=== PATIENT | female | born 1940 | race African-American/Black ===

== ENCOUNTER 2017-06-07 08:02 | Emergency (ER) | payer OTHER ==
[~2017-06-07] VITALS: Ht 149.9 cm; Wt 75.8 kg
[2017-06-07] MEDS ORDERED: CARVEDILOL3.125 MG PO (08:10)
[2017-06-07] MEDS ORDERED: LIPITOR80 MG PO (08:10)
[2017-06-07] MEDS ORDERED: PRINIVIL20 MG PO (08:11)
[2017-06-07] MEDS ORDERED: LASIX 40 MG TAB40 M2 PO (08:11)
[2017-06-07] MEDS ORDERED: NOVOLIN 70100 UNIT/1 SUBQ ×2 (08:12)
[2017-06-07] MEDS ORDERED: OXYBUTYNIN 5 MG5 M2 PO (08:13)
[2017-06-07] MEDS ORDERED: KLOR-CON 10 ER10 MEQ PO (08:14)
[2017-06-07] MEDS ORDERED: PROTONIX40 M1 PO (08:15)
== END 2017-06-07 12:26 ==
LOC: ER 08:02
DX: S62.636A Displaced fracture of distal phalanx of right little finger, initial encounter for closed fracture (principal); W19.XXXA Unspecified fall, initial encounter; Y93.89 Activity, other specified; Y92.89 Other specified places as the place of occurrence of the external cause; Y99.8 Other external cause status

== ENCOUNTER 2018-10-10 00:52 | Emergency (ER) | payer OTHER ==
[~2018-10-10] VITALS: Ht 149.9 cm; Wt 90.7 kg
[~2018-10-10 00:52] MED LIST: CARVEDILOL3.125 MG PO; KLOR-CON 10 ER10 MEQ PO; LASIX 40 MG TAB40 M2 PO; LIPITOR80 MG PO; NOVOLIN 70100 UNIT/1 SUBQ; OXYBUTYNIN 5 MG5 M2 PO; PRINIVIL20 MG PO; PROTONIX40 M1 PO
[2018-10-10] MEDS ORDERED: ERGOCALCIF50000 UNIT PO (01:00)
[2018-10-10] MEDS ORDERED: PEPCID20 MG PO (01:01)
[2018-10-10] MEDS ORDERED: SEROQUEL 25 MG25 M1 PO (01:01)
[2018-10-10] MEDS ORDERED: SENNA8.6 MG PO (01:01)
[2018-10-10] MEDS ORDERED: HALOPERIDOL 2 MG2 MG PO (01:02)
[2018-10-10] MEDS ORDERED: TYLENOL325 MG PO (01:02)
[2018-10-10] MEDS ORDERED: ASPIRIN81 M2 PO (01:02)
[2018-10-10 03:05] VITALS: BP 135/76
== END 2018-10-10 03:38 | disposition home or self-care (01) ==
LOC: ER 00:52
DX: E11.649 Type 2 diabetes mellitus with hypoglycemia without coma (principal); Z88.0 Allergy status to penicillin; Z79.4 Long term (current) use of insulin

== ENCOUNTER 2019-03-01 08:49 | Inpatient (IN) | payer OTHER ==
[~2019-03-01] VITALS: Ht 149.9 cm; Wt 86.2 kg
[~2019-03-01 08:49] MED LIST changes: +ASPIRIN81 M2 PO; +ERGOCALCIF50000 UNIT PO; +HALOPERIDOL 2 MG2 MG PO; +PEPCID20 MG PO; +SENNA8.6 MG PO; +SEROQUEL 25 MG25 M1 PO; +TYLENOL325 MG PO
[2019-03-01 09:23] LABS: ABSOLUTE NEUTROPHILS 6.3 thou/uL (1.4-8.2); BASOPHILS 0.4 % (0.0-2.0); EOSINOPHILS 2.9 % (0.0-3.0); HEMATOCRIT 36.5 % (37.0-47.0); HEMOGLOBIN 11.9 gm/dL (12.0-15.0); LYMPHOCYTES 16.8 % (24.0-44.0); MCH 30.3 pg (26.0-34.0); MCHC 32.7 g/dL (28.0-37.0); MCV 92.8 fL (80.0-100.0); MONOCYTES 4.2 % (1.0-8.0); PLATELET COUNT 326 thou/uL (150-400); POLYS 75.7 % (36.0-66.0); RBC 3.93 mil/uL (4.20-5.00); RDW 14.6 % (10.5-14.5); WBC 8.3 thou/uL (4.0-11.0)
[2019-03-01 09:27] LABS: BE(vivo) 2.3 mmol/L (-2 to +3); PO2 61.5 mmHg (80.0-100.0); pH 7.384 (7.360-7.450)
[2019-03-01 09:33] LABS: ANION GAP 5 mmol/L (7-16); BUN 18 mg/dL (7-18); CHLORIDE 106 mmol/L (98-107); CO2 30 mmol/L (21-32); CREATININE 1.3 mg/dL (0.6-1.0); GLUCOSE 221 mg/dL (74-106); POTASSIUM 3.9 mmol/L (3.5-5.1); SODIUM 141 mmol/L (136-145)
[2019-03-01 09:38] LABS: DIRECT BILIRUBIN < 0.1 mg/dL (<0.1-0.2); SGOT 12 U/L (15-37); SGPT 19 U/L (30-65); TOTAL BILIRUBIN 0.3 mg/dL (<0.1-1.0); TOTAL PROTEIN 7.6 g/dL (6.4-8.2)
[2019-03-01 10:55] VITALS: BP 127/62
[2019-03-01 15:00] VITALS: BP 133/83
[2019-03-01] MEDS ORDERED: FOLGARD TABLET1 EAC1 PO (15:09)
[2019-03-01] MEDS ORDERED: HALOPERIDOL 2 MG2 M1 PO (15:15)
[2019-03-01] MEDS ORDERED: HALOPERIDOL 1 MG1 MG PO (15:17)
--- NOTE | 2019-03-01 15:22 | NUR ---
PATIENT IS A 78 YEAR OLD FEMALE WHO WAS ADMITTED FROM [facility] ER TO 4W ROOM 463. PATIENT IS ALERT AND ORIENTED X 3-4 ABLE TO VOICE NEED. PATIENT ORIGINALLY RESIDES AT [facility]. ACCORDING TO ER REPORT, PATIENT WAS FOUND STRUGGLING TO BREATH, WITH A ROOM AIR SAT OF 61% AND A BLOOD PRESSURE OF 235/160. LUNGS DIMINISHED IN ALL LOBE PER AUSCULTATION. BS+X4, ABD SOFT, NON-TENDER TO TOUCH. 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 PATIENT USES W/C FOR MOBILITY, [address] 2 LITERS N/C. SALINE LOCK TO RIGHT HAND. ADMIT VITALS FOLLOWS: BP134/74, HR 90, R 20, 02 SAT 95%. PATIENT IS CALM COOPERATIVE WITH ASSESSMENT QUESTIONS. LUNCH OFFERED, PATIENT CONSUMED 100%. PATIENT IS INCONTINENT OF BOWEL/BLADDER, REQUIRES TOTAL ADL CARE. PATIENT DENIES PAIN. NO SIGN OF ACUTE RESPIRATORY DISTRESS NOTED AT THIS TIME. PATIENT NOTED TALKING TO SELF AND TO UNSEEN OTHERS "MAYA". PATIENT IS IN BED RESTING, CALL LIGHT IN REACH, WILL CONTINUE TO MONITOR.
[2019-03-01 19:30] VITALS: BP 128/67
--- NOTE | 2019-03-02 05:02 | NUR ---
progress pt a/o x4 resting on and off this shift. denies pain at this time ivf's infusing as ordered. lungs diminished non productive cough noted rt tx's continue. repositioned frequently fall precautions in place continue poc.
[2019-03-02 08:00] VITALS: BP 133/51
--- NOTE | 2019-03-02 08:27 | EKG ---
[place] [address] [address] [facility] [place] [address] ELECTROCARDIOGRAM REPORT Name: JAE SIMEON Room #: 463-P ADM IN M.R.#: [id number] Admission: 03/01/19 Attend Phys: Liz Naylor MD Discharge: Date of : 38 Report #: [id number] THIS REPORT FOR: //name// [facility] ED Test Date: 2019-03-01 Test Time: 09:06:49 Pat Name: JAE SIMEON Department: Room: Gender: F [employer]: KM : 1940 Requested By: Haley Vizcaino Order Number: [id number] MD: Romeo Woodward Measurements Intervals [place] Rate: 98 P: 26 IN: 163 QRS: 48 QRSD: 96 T: 62 QT: 383 QTc: 490 Interpretive Statements Sinus rhythm Borderline prolonged QT interval No previous ECG available for comparison Electronically Signed On 03-02-2019 8:26:50 PALAEONTOLOGIST by Romeo Woodward [email or web address] <ELECTRONICALLY SIGNED> By: Romeo Woodward MD, [facility] 03/02/19 0826 [id number] 5 Romeo Woodward MD, FACC /EPI
--- NOTE | 2019-03-02 14:01 | NUR ---
DISCHARGE PLANNING. PATIENT RESIDES AT [facility]. PLAN IS FOR PATIENT TO RETURN TO ONCE MEDICALLY READY. CLINICAL INFORMATION FAXED TO [facility], [facility] ADMISSIONS. [facility] NOTIFIED. FOLLOWING.
--- NOTE | 2019-03-02 14:48 | NUR ---
Case opened to follow for dc planning. Automatic Seamer visited with the pt at [facility] and chart reviewed. The pt is a ltc resident at [facility] for approx one year. The pt reports she is normally up in a w/c at the facility. The pt has limited vision and if forgetful. She did confirm her dtrs Abril and Kayla are her emergency contacts. She is agreeable with updating [facility] admissions and is aware they are holding her bed per their admissions liason. Message left for her dtr Abril who has identified herself as the pt's guardian. [facility] is holding her bed. They report that they do not have any dpoa or guardianship documents on file. Case discussed with the care team. Will follow along and assist with pt's return to the senior care when medically ready.
[2019-03-02 20:07] VITALS: BP 118/58
--- NOTE | 2019-03-02 20:12 | NUR ---
Assumed patient care at 0715. Patient's vital signs have been stable throughout this shift; she denies pain. Blood sugars have been running high (250-370); she is asymptomatic. Daughter, Kyala, is Guardian. Kayla stated "the only kind of Insulin that will help control my Mother's blood sugar is Novolin 70/30!" This nurse called Pharmacy. Pharmacy does not carry this kind of Imsulin. Patient would have to get Insulin from her facility. Daughter was not happy about this. Patient has been in a pleasant mood all shift until her daughter came. At this time, patient began telling her daughter that staff is trying to "kill her" , and, "trying to make her kill herself." Patient has a diagnosis of Schizophrenia, per daughter. Report given to on-coming RN.
--- NOTE | 2019-03-03 04:21 | NUR ---
Pt. rested quietly at intervals during the night when checked on during frequent rounds. She refused some of her bedtime medications. Explained the medication to the pt. and she started getting irritated and voiced she did not want them (see emar). Female external catheter in place due to in- continency. No c/o pain. Bed alarm is on.
[2019-03-03 05:45] LABS: HEMATOCRIT 34.8 % (37.0-47.0); HEMOGLOBIN 11.2 gm/dL (12.0-15.0); MCHC 32.2 g/dL (28.0-37.0); MCV 93.1 fL (80.0-100.0); RBC 3.73 mil/uL (4.20-5.00); RDW 14.9 % (10.5-14.5); WBC 6.9 thou/uL (4.0-11.0)
[2019-03-03 08:55] VITALS: BP 141/73
--- NOTE | 2019-03-03 15:00 | NUR ---
ASSUMED CARE OF THE PT AT 0700. PT WANTS TO BE DISCHARGED, SPOKE WITH DOCTOR. PT FLUIDS ARE DISCONTINUED PER DOCTOR. PTS BS IS BEING CONTROLLED BY INSULIN, SEE EMAR. PT IS ON 2.0 L OF O2. PTS EXTERNAL CATHETER IS IN TACT AND WORKING. R HAND IV IS DRY AND INTACT. PT IS A FEEDER AND IS BLIND. FALL PRECAUTIONS ARE IN PLACE, BED IS IN THE LOWEST POSITION AND CALL LIGHT IS WITHIN REACH. WILL CONTINUE TO MONITOR THE PT.
--- NOTE | 2019-03-03 16:27 | NUR ---
CARE TEAM INDICATED THAT PT IS PROGRESSING TOWARD GOAL OF DISCHARGE BACK TO [facility]. LABS TO BE CHECKED TOMOROW AM. CM TO FOLLOW INDICATED WITH DC PLANNING.
[2019-03-03 16:50] VITALS: BP 120/62
[2019-03-03 19:37] VITALS: BP 126/80
--- NOTE | 2019-03-04 04:46 | NUR ---
Assessments completed. pt had a restful night. no c/o pain. on 2lnc and tolerating well. female ext. cath in place and patent. v/s wnl. no s/s of distress. will cont to monitor
[2019-03-04 08:34] VITALS: BP 126/80
[2019-03-04] MEDS ORDERED: LEVAQUIN 500 M500 M1 PO (11:34)
[2019-03-04] MEDS ORDERED: AZITHROMYCIN 2250 MG PO (11:34)
[2019-03-04] MEDS ORDERED: IPRAT-ALBUT 0.5-3 ML INH (11:35)
--- NOTE | 2019-03-04 16:06 | NUR ---
CARE TEAM INDICATED THAT PT IS MEDICALLY STABLE TO RETURN TO [facility] THIS DAY. CHART COPY ORDERED. ORDERS FAXED. CM ATTEMPTED TO NOTIFY BOTH DTRS BUT NEITHER ANSWERED. CM LEFT TWO MESSAGES WITH DTR VALERIY. TRANSPORT IS ARRANGED FOR [id number]. NO OTHER CM INTERVENTION INDICATED. CASE CLOSED.
--- NOTE | 2019-03-04 16:35 | NUR ---
PATIENT WILL BE DISCHARGED TO FACILITY THIS AFTERNOON. SHE IS PLEASED TO GO BACK HOME. DENIES PAIN. WAS TAKEN OFF OXYGEN AND HER SATS HAS BEEN ABOVE 92% IN ROOM AIR. WILL CONT WITH PLAN OF CARE.
== END 2019-03-04 17:49 | DRG 193 ==
LOC: ER 08:49 → 4W 12:12
PROVIDERS: Emergency Medicine; ADMIT Internal Medicine
DX: J18.9 Pneumonia, unspecified organism (principal); J96.01 Acute respiratory failure with hypoxia; F20.0 Paranoid schizophrenia; J44.0 Chronic obstructive pulmonary disease with (acute) lower respiratory infection; N18.3 Chronic kidney disease, stage 3 (moderate); E11.22 Type 2 diabetes mellitus with diabetic chronic kidney disease; K21.9 Gastro-esophageal reflux disease without esophagitis; N18.9 Chronic kidney disease, unspecified; E87.70 Fluid overload, unspecified; Z79.82 Long term (current) use of aspirin; Z79.899 Other long term (current) drug therapy; Z88.0 Allergy status to penicillin
CPT/HCPCS: 10040

== ENCOUNTER 2020-06-09 08:14 | Emergency (ER) | payer OTHER ==
[~2020-06-09] VITALS: Ht 162.6 cm; Wt 97.5 kg
[~2020-06-09 08:14] MED LIST changes: +AZITHROMYCIN 2250 MG PO; +FOLGARD TABLET1 EAC1 PO; +HALOPERIDOL 1 MG1 MG PO; +HALOPERIDOL 2 MG2 M1 PO; +IPRAT-ALBUT 0.5-3 ML INH; +LEVAQUIN 500 M500 M1 PO
[2020-06-09 09:09] LABS: ABSOLUTE NEUTROPHILS 4.5 thou/uL (1.4-8.2); BASOPHILS 0.8 % (0.0-2.0); EOSINOPHILS 3.4 % (0.0-3.0); HEMATOCRIT 34.2 % (37.0-47.0); HEMOGLOBIN 11.3 gm/dL (12.0-15.0); LYMPHOCYTES 15.7 % (24.0-44.0); MCH 30.5 pg (26.0-34.0); MCHC 32.9 g/dL (28.0-37.0); MCV 92.6 fL (80.0-100.0); MONOCYTES 7.6 % (1.0-8.0); PLATELET COUNT 287 thou/uL (150-400); POLYS 72.5 % (36.0-66.0); RBC 3.69 mil/uL (4.20-5.00); RDW 15.8 % (10.5-14.5); WBC 6.2 thou/uL (4.0-11.0)
[2020-06-09 09:10] LABS: URINE BILIRUBIN NEGATIVE (Negative); URINE BLOOD NEGATIVE (Negative); URINE CLARITY CLEAR; URINE COLOR YELLOW; URINE GLUCOSE-RANDOM* NEGATIVE (Negative); URINE KETONES NEGATIVE (Negative); URINE LEUKOCYTES-REFLEX NEGATIVE (Negative); URINE PROTEIN (DIPSTICK) NEGATIVE (Negative); URINE SPECIFIC GRAVITY 1.015 (1.005-1.035); URINE UROBILINOGEN 0.2 E.U./dl (0.2-1.0)
[2020-06-09 09:17] LABS: CALCIUM 9.2 mg/dL (8.5-10.1); CREATININE 1.3 mg/dL (0.6-1.0); POTASSIUM 4.4 mmol/L (3.5-5.1)
[2020-06-09 09:17] LABS: URINE NITRITE-REFLEX POSITIVE (Negative)
[2020-06-09 09:23] LABS: ALBUMIN 3.1 g/dL (3.4-5.0); TOTAL BILIRUBIN 0.4 mg/dL (0.2-1.0); TOTAL PROTEIN 7.4 g/dL (6.4-8.2)
[2020-06-09 09:45] LABS: SQUAMOUS 0-3 Few /LPF (0-3)
[2020-06-09 09:46] LABS: BACTERIA-REFLEX >30 Many /HPF (None Seen); CASTS None Seen /LPF (None Seen); CRYSTALS None Seen /LPF (None Seen); URINE RBC 0-2 Rare /HPF (0-2); URINE WBC-REFLEX None Seen /HPF (0-5)
[2020-06-09] MEDS ORDERED: MACROBID 100 M100 M1 PO (10:14)
[2020-06-09 11:30] VITALS: BP 106/49
== END 2020-06-09 12:04 ==
LOC: ER 08:14
PROVIDERS: Emergency Medicine
DX: E11.649 Type 2 diabetes mellitus with hypoglycemia without coma (principal); N39.0 Urinary tract infection, site not specified; E11.22 Type 2 diabetes mellitus with diabetic chronic kidney disease; I12.9 Hypertensive chronic kidney disease with stage 1 through stage 4 chronic kidney disease, or unspecified chronic kidney disease; N18.30 Chronic kidney disease, stage 3 unspecified; Z79.2 Long term (current) use of antibiotics; Z79.899 Other long term (current) drug therapy; Z79.4 Long term (current) use of insulin; Z88.0 Allergy status to penicillin

== ENCOUNTER 2021-05-02 05:50 | Emergency (ER) | payer OTHER ==
[~2021-05-02] VITALS: Ht 165.1 cm; Wt 81.7 kg
[~2021-05-02 05:50] MED LIST changes: +MACROBID 100 M100 M1 PO
[2021-05-02 06:32] LABS: ABSOLUTE NEUTROPHILS 7.3 thou/uL (1.4-8.2); BASOPHILS 0.5 % (0.0-2.0); EOSINOPHILS 0.4 % (0.0-3.0); HEMATOCRIT 32.6 % (37.0-47.0); HEMOGLOBIN 10.8 gm/dL (12.0-15.0); LYMPHOCYTES 8.6 % (24.0-44.0); MCH 31.1 pg (26.0-34.0); MCHC 33.1 g/dL (28.0-37.0); MCV 93.9 fL (80.0-100.0); MONOCYTES 2.7 % (1.0-8.0); PLATELET COUNT 314 thou/uL (150-400); POLYS 87.8 % (36.0-66.0); RBC 3.48 mil/uL (4.20-5.00); WBC 8.3 thou/uL (4.0-11.0)
[2021-05-02 06:37] LABS: URINE BILIRUBIN NEGATIVE (Negative); URINE BLOOD NEGATIVE (Negative); URINE CLARITY CLEAR; URINE COLOR YELLOW; URINE GLUCOSE-RANDOM* NEGATIVE (Negative); URINE KETONES NEGATIVE (Negative); URINE LEUKOCYTES-REFLEX NEGATIVE (Negative); URINE PROTEIN (DIPSTICK) TRACE (Negative); URINE UROBILINOGEN 0.2 E.U./dl (0.2-1.0)
[2021-05-02 06:40] LABS: URINE NITRITE-REFLEX POSITIVE (Negative)
[2021-05-02 06:41] LABS: CALCIUM 9.2 mg/dL (8.5-10.1); CREATININE 0.8 mg/dL (0.6-1.0); POTASSIUM 5.5 mmol/L (3.5-5.1)
[2021-05-02 06:46] LABS: ALBUMIN 2.7 g/dL (3.4-5.0); TOTAL BILIRUBIN 0.3 mg/dL (0.2-1.0); TOTAL PROTEIN 7.2 g/dL (6.4-8.2)
[2021-05-02 06:56] LABS: BACTERIA-REFLEX >30 Many /HPF (None Seen); CASTS None Seen /LPF (None Seen); CRYSTALS None Seen /LPF (None Seen); MUCUS 0-3 Light strn/LPF (None Seen); SQUAMOUS 0-3 Few /LPF (0-3); URINE RBC 1-2 Rare /HPF (NONE SEEN); URINE WBC-REFLEX 0-5 Rare /HPF (0-5)
[2021-05-02] MEDS ORDERED: CEPHALEXIN500 MG PO (07:19)
[2021-05-02 09:40] VITALS: BP 148/87
== END 2021-05-02 09:40 ==
LOC: ER 05:50
PROVIDERS: Emergency Medicine
DX: E11.649 Type 2 diabetes mellitus with hypoglycemia without coma (principal); N39.0 Urinary tract infection, site not specified; F02.80 Dementia in other diseases classified elsewhere, unspecified severity, without behavioral disturbance, psychotic disturbance, mood disturbance, and anxiety; G62.9 Polyneuropathy, unspecified; K21.9 Gastro-esophageal reflux disease without esophagitis; I12.9 Hypertensive chronic kidney disease with stage 1 through stage 4 chronic kidney disease, or unspecified chronic kidney disease; N18.30 Chronic kidney disease, stage 3 unspecified; Z79.891 Long term (current) use of opiate analgesic; Z79.899 Other long term (current) drug therapy; Z79.82 Long term (current) use of aspirin; Z79.1 Long term (current) use of non-steroidal anti-inflammatories (NSAID); Z88.0 Allergy status to penicillin